=== PATIENT | male | born 1950 | race African-American/Black ===

== ENCOUNTER 2024-11-22 00:21 | Emergency (ER) | payer BC ==
[~2024-11-22] VITALS: Ht 177.8 cm; Wt 72.6 kg
[2024-11-22 02:09] LABS: BASOPHILS % (AUTO) 0.5 % (0.0-2.0); EOSINOPHILS # (AUTO) 0.1 K/uL (0.0-0.7); EOSINOPHILS % (AUTO) 2.4 % (0.0-7.0); HEMATOCRIT 44.3 % (36.7-47.1); LYMPHOCYTES # (AUTO) 1.3 K/uL (0.8-4.8); LYMPHOCYTES % (AUTO) 32.8 % (20.5-51.5); MEAN CORPUSCULAR HEMOGLOBIN 30.2 uug (23.8-33.4); MEAN CORPUSCULAR HGB CONC 34 g/dL (32.5-36.3); MEAN CORPUSCULAR VOLUME 88.9 fL (73.0-96.2); MONOCYTES # (AUTO) 0.5 K/uL (0.1-1.30); MONOCYTES % (AUTO) 13.7 % (0.0-11.0); NEUTROPHILS % (AUTO) 50.6 % (38.5-71.5); PLATELET COUNT (AUTO) 175 K/uL (152-348); RED BLOOD CELL COUNT(AUTO) 4.98 MIL/uL (4.06-5.63); RED CELL DISTRIBUTION WIDTH 15.2 % (12.1-16.2)
[2024-11-22 02:11] LABS: DIFFERENTIAL COMMENT 1
[2024-11-22 02:42] LABS: ALANINE AMINOTRANSFERASE 17 U/L (16-63); ALBUMIN 3.5 g/dL (3.4-5.0); ALKALINE PHOSPHATASE 82 U/L (50-136); ASPARTATE AMINOTRANSFERASE 10 U/L (15-37); BILIRUBIN,DIRECT 0.2 mg/dL (0.0-0.2); BILIRUBIN,TOTAL 0.7 mg/dL (0.2-1.0); CALCIUM 9.6 mg/dL (8.5-10.1); CARBON DIOXIDE 26 mmol/L (21-32); CHLORIDE 100 mmol/L (98-107); CREATININE 1.1 mg/dL (0.6-1.3); GLUCOSE 158 mg/dL (74-106); NT-PRO BNP 95 pg/mL (0-125); POTASSIUM 3.5 mmol/L (3.5-5.1); SODIUM SERUM 135 mmol/L (136-145); TOTAL PROTEIN, SERUM 7.5 g/dL (6.4-8.2); UREA NITROGEN, BLOOD 15 mg/dL (7-18)
[2024-11-22] MEDS ORDERED: CYCL10TA9 PO (05:32)
[2024-11-22 05:33] VITALS: BP 128/82; TEMP 97.9; O2SAT 100
== END 2024-11-22 05:33 | disposition home or self-care (01) ==
LOC: ER 01:12 → EDBD 01:12 → ER 05:33
DX: M54.6 Pain in thoracic spine (principal); R07.9 Chest pain, unspecified; E11.9 Type 2 diabetes mellitus without complications; J43.9 Emphysema, unspecified; F17.200 Nicotine dependence, unspecified, uncomplicated
CPT/HCPCS: 36415; 71045; 71250; 84484; 85025; A4606; A4663

== ENCOUNTER 2025-01-30 16:08 | Emergency (ER) | payer OTHER ==
[~2025-01-30] VITALS: Ht 177.8 cm; Wt 74.8 kg
[~2025-01-30 16:08] MED LIST: CYCL10TA9 PO
[2025-01-30 16:45] LABS: BASOPHILS % (AUTO) 0.5 % (0.0-2.0); EOSINOPHILS # (AUTO) 0.1 K/uL (0.0-0.7); EOSINOPHILS % (AUTO) 1.7 % (0.0-7.0); HEMATOCRIT 42.9 % (36.7-47.1); HEMOGLOBIN 14.3 g/dL (12.5-16.3); LYMPHOCYTES # (AUTO) 1.4 K/uL (0.8-4.8); LYMPHOCYTES % (AUTO) 35.6 % (20.5-51.5); MEAN CORPUSCULAR HEMOGLOBIN 29.5 uug (23.8-33.4); MEAN CORPUSCULAR HGB CONC 33 g/dL (32.5-36.3); MEAN CORPUSCULAR VOLUME 88.7 fL (73.0-96.2); MONOCYTES # (AUTO) 0.7 K/uL (0.1-1.30); MONOCYTES % (AUTO) 18.6 % (0.0-11.0); NEUTROPHILS # (AUTO) 1.7 K/uL (1.8-8.9); NEUTROPHILS % (AUTO) 43.6 % (38.5-71.5); PLATELET COUNT (AUTO) 211 K/uL (152-348); RED BLOOD CELL COUNT(AUTO) 4.84 MIL/uL (4.06-5.63); WHITE BLOOD COUNT (AUTO) 3.9 K/uL (3.6-10.2)
[2025-01-30 16:46] LABS: DIFFERENTIAL COMMENT 1
[2025-01-30 16:56] LABS: ALANINE AMINOTRANSFERASE 11 U/L (16-63); ALBUMIN 3.4 g/dL (3.4-5.0); ALKALINE PHOSPHATASE 80 U/L (50-136); ASPARTATE AMINOTRANSFERASE 15 U/L (15-37); BILIRUBIN,DIRECT 0.2 mg/dL (0.0-0.2); BILIRUBIN,TOTAL 0.6 mg/dL (0.2-1.0); CALCIUM 9.5 mg/dL (8.5-10.1); CARBON DIOXIDE 32 mmol/L (21-32); CHLORIDE 102 mmol/L (98-107); CREATININE 0.9 mg/dL (0.6-1.3); GLUCOSE 97 mg/dL (74-106); POTASSIUM 3.9 mmol/L (3.5-5.1); SODIUM SERUM 144 mmol/L (136-145); TOTAL PROTEIN, SERUM 7.8 g/dL (6.4-8.2); UREA NITROGEN, BLOOD 8 mg/dL (7-18)
[2025-01-30 17:01] LABS: LACTIC ACID 2.5 mmol/L (0.4-2.0)
[2025-01-30 17:13] LABS: ANISOCYTOSIS 1+; BAND % (MANUAL) 1 % (0-10); LYMPHOCYTES % (MANUAL) 38 % (20-40); MONOCYTES % (MANUAL) 17 % (2-10); NEUTROPHILS % (MANUAL) 44 % (42-75); PLATELET ESTIMATE ADEQUATE
[2025-01-30] MEDS: IV LACTATED RINGERS SOLUTION 1,000 ML BAG IV ONE (17:16)
[2025-01-30] MEDS ORDERED: levoFLOXacin 750MG/D5W 150 ML IV ONE (17:24)
[2025-01-30] MEDS: levoFLOXacin 750 MG/D5W 150 ML PIGGYBACK IV ONE (17:32)
[2025-01-30] MEDS ORDERED: NEOMY/BACITRA/POLYMYXIN B OINT UD PACKET TP ONE (18:04)
[2025-01-30] MEDS ORDERED: LEVO750T46 PO (18:21)
[2025-01-30 19:07] VITALS: BP 139/88; O2SAT 97
== END 2025-01-30 19:07 | disposition home or self-care (01) ==
LOC: ER 16:25
DX: L03.115 Cellulitis of right lower limb (principal); E11.9 Type 2 diabetes mellitus without complications; F17.200 Nicotine dependence, unspecified, uncomplicated; Z88.7 Allergy status to serum and vaccine
CPT/HCPCS: 99284; 96365; 96366; 80076; 80048; 85025; 84145; 86140; 36415; 73590; 83605 ×2; 85007; J1956; J7120; A4606; A4663; J7040